=== PATIENT | female | born 1985 | race Caucasian/White ===

== ENCOUNTER → 2018-04-14 | Outpatient (CLI) | payer OTHER ==
[2018-04-14 11:24] LABS: EOS # 0.3 (0.04-0.40); EOS % 3.4 % (1.0-5.0); HEMATOCRIT 40.8 % (37.0-47.0); HEMOGLOBIN 13.6 g/dL (12.5-16.0); LYMPH# 1.3 (1.50-4.00); MEAN CELL VOLUME 89 fl (78-100); MEAN CORPUSCULAR HEMOGLOBIN 30 pg (27-31); MEAN CORPUSCULAR HGB CONC 33 g/dL (33-37); MEAN PLATELET VOLUME 9.4 fl (7.4-10.4); MONO # 0.5 (0.20-0.80); NEU # 5.4 (1.40-6.50); PLATELET COUNT 297 K/mm3 (130-400); RED BLOOD COUNT 4.57 M/mm3 (4.10-5.30); RED CELL DISTRIBUTION WIDTH 12.6 % (11.5-14.5); WHITE BLOOD COUNT 7.4 K/mm3 (4.8-10.8)
== END ==
LOC: LAB 11:11
PROVIDERS: Nurse Practitioner
DX: R53.81 Other malaise (principal); R53.83 Other fatigue

== ENCOUNTER → 2018-08-19 | Outpatient (CLI) | payer OTHER ==
[2018-08-19 11:51] LABS: ALBUMIN 4.3 g/dL (3.5-5.0); CALCIUM 9.1 mg/dL (8.4-10.2); TOTAL BILIRUBIN 0.4 mg/dL (0.2-1.3); TOTAL PROTEIN 7.2 g/dL (6.3-8.2)
[2018-08-19 11:59] LABS: EOS # 0.2 (0.04-0.40); EOS % 4.7 % (1.0-5.0); HEMATOCRIT 42.2 % (37.0-47.0); HEMOGLOBIN 14.2 g/dL (12.5-16.0); LYMPH# 0.8 (1.50-4.00); MEAN CELL VOLUME 89 fl (78-100); MEAN CORPUSCULAR HEMOGLOBIN 30 pg (27-31); MEAN CORPUSCULAR HGB CONC 34 g/dL (33-37); MEAN PLATELET VOLUME 9.6 fl (7.4-10.4); MONO # 0.4 (0.20-0.80); NEU # 3.4 (1.40-6.50); PLATELET COUNT 254 K/mm3 (130-400); RED BLOOD COUNT 4.74 M/mm3 (4.10-5.30); RED CELL DISTRIBUTION WIDTH 12.8 % (11.5-14.5); WHITE BLOOD COUNT 4.9 K/mm3 (4.8-10.8)
[2018-08-19 12:59] LABS: ERYTHROCYTE SEDIMENTATION RATE 3 mm/hr (0-20)
[2018-08-20 02:39] LABS: C-REACTIVE PROTEIN XXX
== END ==
LOC: LAB 11:12
PROVIDERS: Family Medicine
DX: R10.9 Unspecified abdominal pain (principal); E66.3 Overweight; R53.83 Other fatigue; G89.29 Other chronic pain

== ENCOUNTER → 2020-03-05 | Outpatient (CLI) | payer OTHER | LOC: LAB 08:26 | DX: R30.0 Dysuria (principal) ==

== ENCOUNTER → 2020-06-01 | Outpatient (CLI) | payer OTHER ==
[2020-06-01 15:47] LABS: EOS # 0.4 (0.04-0.40); EOS % 5.9 % (1.0-5.0); HEMATOCRIT 39.3 % (37.0-47.0); HEMOGLOBIN 13.1 g/dL (12.5-16.0); LYMPH# 2.1 (1.50-4.00); MEAN CELL VOLUME 92 fl (78-100); MEAN CORPUSCULAR HEMOGLOBIN 31 pg (27-31); MEAN CORPUSCULAR HGB CONC 33 g/dL (33-37); MEAN PLATELET VOLUME 9.3 fl (7.4-10.4); MONO # 0.5 (0.20-0.80); NEU # 3.3 (1.40-6.50); PLATELET COUNT 330 K/mm3 (130-400); RED BLOOD COUNT 4.29 M/mm3 (4.10-5.30); WHITE BLOOD COUNT 6.4 K/mm3 (4.8-10.8)
[2020-06-01 15:56] LABS: ALBUMIN 4.4 g/dL (3.5-5.0); POTASSIUM 4.1 mmol/L (3.5-5.1); SODIUM 141 mmol/L (136-145)
[2020-06-01 15:57] LABS: CALCIUM 9.5 mg/dL (8.3-10.5)
[2020-06-01 15:58] LABS: GLUCOSE 86 mg/dL (65-105); TOTAL PROTEIN 7.2 g/dL (6.4-8.3)
[2020-06-01 15:59] LABS: CARBON DIOXIDE 27 mmol/L (22-29)
[2020-06-01 16:00] LABS: TOTAL BILIRUBIN 0.2 mg/dL (0.2-1.2)
[2020-06-01 16:04] LABS: AST-SGOT 18 U/L (5-34)
[2020-06-01 16:05] LABS: ALT/SGPT 16 U/L (0-55)
[2020-06-01 16:42] LABS: ERYTHROCYTE SEDIMENTATION RATE 6 mm/hr (0-20)
== END ==
LOC: LAB 15:35
PROVIDERS: Family Medicine
DX: R53.83 Other fatigue (principal)

== ENCOUNTER → 2020-07-13 | Outpatient (CLI) | payer OTHER | LOC: RAD 07:41 | DX: N13.30 Unspecified hydronephrosis (principal) ==

== ENCOUNTER → 2020-08-03 | Outpatient (CLI) | payer OTHER ==
[2020-08-03 18:42] LABS: ALBUMIN 4.4 g/dL (3.5-5.0); POTASSIUM 3.9 mmol/L (3.5-5.1)
[2020-08-03 18:43] LABS: CALCIUM 9.2 mg/dL (8.3-10.5)
[2020-08-03 18:44] LABS: TOTAL PROTEIN 7.3 g/dL (6.4-8.3); URINE APPEARANCE CLEAR; URINE BILIRUBIN NEGATIVE (NEGATIVE); URINE BLOOD NEGATIVE (NEGATIVE); URINE COLOR YELLOW; URINE GLUCOSE NEGATIVE (NEGATIVE); URINE KETONE NEGATIVE (NEGATIVE); URINE LEUKOCYTE ESTERASE NEGATIVE (NEGATIVE); URINE NITRATE NEGATIVE (NEGATIVE); URINE PROTEIN(semi-quant) NEGATIVE (NEGATIVE); URINE UROBILINOGEN NORMAL (NORMAL); URINE WBC 0-1 /hpf (0-3)
[2020-08-03 18:46] LABS: TOTAL BILIRUBIN 0.2 mg/dL (0.2-1.2)
[2020-08-04 20:54] LABS: CREATININE OTHER SOURCE 13 mg/dL (())
== END ==
LOC: LAB 18:25
PROVIDERS: Internal Medicine Nephrology
DX: N17.9 Acute kidney failure, unspecified (principal)

== ENCOUNTER → 2020-08-19 | Outpatient (CLI) | payer OTHER ==
[~2020-08-19] MED LIST: PROAIR HFA0.09 MG/AC IH; XANAX0.25 M1 PO; ZOFRAN ODT4 MG PO
== END ==
LOC: RAD 16:15
DX: N13.30 Unspecified hydronephrosis (principal)
CPT/HCPCS: Q9967

== ENCOUNTER 2020-10-17 21:21 | Emergency (ER) | payer OTHER ==
[2020-10-17] MEDS ORDERED: XANAX0.25 M1 PO (21:37)
[2020-10-17] MEDS ORDERED: PROAIR HFA0.09 MG/AC IH (21:37)
[2020-10-17 21:44] LABS: EOS # 0.4 (0.04-0.40); EOS % 5.8 % (1.0-5.0); HEMATOCRIT 42.5 % (37.0-47.0); HEMOGLOBIN 14.2 g/dL (12.5-16.0); LYMPH# 2.5 (1.50-4.00); MEAN CELL VOLUME 91 fl (78-100); MEAN CORPUSCULAR HEMOGLOBIN 30 pg (27-31); MEAN CORPUSCULAR HGB CONC 33 g/dL (33-37); MEAN PLATELET VOLUME 9.4 fl (7.4-10.4); MONO # 0.5 (0.20-0.80); NEU # 3.7 (1.40-6.50); PLATELET COUNT 315 K/mm3 (130-400); RED BLOOD COUNT 4.67 M/mm3 (4.10-5.30); RED CELL DISTRIBUTION WIDTH 12.6 % (11.5-14.5); WHITE BLOOD COUNT 7.1 K/mm3 (4.8-10.8)
[2020-10-17 21:51] LABS: ALBUMIN 4.8 g/dL (3.5-5.0); POTASSIUM 4.2 mmol/L (3.5-5.1)
[2020-10-17 21:52] LABS: CALCIUM 9.9 mg/dL (8.3-10.5)
[2020-10-17 21:54] LABS: TOTAL PROTEIN 7.8 g/dL (6.4-8.3)
[2020-10-17 21:55] LABS: TOTAL BILIRUBIN 0.4 mg/dL (0.2-1.2)
[2020-10-18 01:04] LABS: URINE APPEARANCE HAZY; URINE BILIRUBIN NEGATIVE (NEGATIVE); URINE BLOOD NEGATIVE (NEGATIVE); URINE COLOR YELLOW; URINE GLUCOSE NEGATIVE (NEGATIVE); URINE KETONE 1+ (NEGATIVE); URINE LEUKOCYTE ESTERASE NEGATIVE (NEGATIVE); URINE NITRATE NEGATIVE (NEGATIVE); URINE PROTEIN(semi-quant) NEGATIVE (NEGATIVE); URINE UROBILINOGEN NORMAL (NORMAL); URINE WBC 0-1 /hpf (0-3)
[2020-10-18] MEDS ORDERED: ZOFRAN ODT4 MG PO (01:18)
[2020-10-18 01:28] VITALS: BP 112/58
== END 2020-10-18 01:28 | disposition home or self-care (01) ==
LOC: ED 21:21
PROVIDERS: Nurse Practitioner
DX: A08.4 Viral intestinal infection, unspecified (principal); J45.909 Unspecified asthma, uncomplicated; Z90.49 Acquired absence of other specified parts of digestive tract; Z79.899 Other long term (current) drug therapy
CPT/HCPCS: J2550; J3010; J7030

== ENCOUNTER → 2021-02-04 | Outpatient (CLI) | payer OTHER ==
[2021-02-04 11:34] LABS: CALCIUM 9.4 mg/dL (8.3-10.5)
[2021-02-05 14:07] LABS: CREATININE OTHER SOURCE 49 mg/dL (())
== END ==
LOC: LAB 11:12
PROVIDERS: Internal Medicine Nephrology
DX: N13.30 Unspecified hydronephrosis (principal); N17.9 Acute kidney failure, unspecified

== ENCOUNTER → 2022-05-16 | Outpatient (CLI) | payer OTHER | LOC: LAB 09:09 | DX: J02.9 Acute pharyngitis, unspecified (principal); R52 Pain, unspecified ==

== ENCOUNTER → 2022-10-02 | Outpatient (CLI) | payer OTHER ==
[2022-10-02 17:51] LABS: POTASSIUM 3.6 mmol/L (3.5-5.1)
[2022-10-02 17:53] LABS: CALCIUM 9.1 mg/dL (8.3-10.5)
[2022-10-02 17:54] LABS: TOTAL PROTEIN 6.6 g/dL (6.4-8.3)
[2022-10-02 17:56] LABS: TOTAL BILIRUBIN 0.2 mg/dL (0.2-1.2)
[2022-10-02 19:27] LABS: URINE APPEARANCE CLEAR; URINE BILIRUBIN NEGATIVE (NEGATIVE); URINE BLOOD NEGATIVE (NEGATIVE); URINE COLOR YELLOW; URINE GLUCOSE NEGATIVE (NEGATIVE); URINE KETONE NEGATIVE (NEGATIVE); URINE LEUKOCYTE ESTERASE TRACE (NEGATIVE); URINE NITRATE NEGATIVE (NEGATIVE); URINE PROTEIN(semi-quant) NEGATIVE (NEGATIVE); URINE UROBILINOGEN NORMAL (NORMAL)
[2022-10-05 06:41] LABS: CLADOSPORIUM ALLERGEN COUNT <0.10 kU/L (()); COCKROACH ALLERGEN COUNT <0.10 kU/L (()); ELM TREE ALLERGEN COUNT 0.96 kU/L (()); MILK ALLERGEN COUNT 0.25 kU/L (()); OAK ALLERGEN COUNT 0.34 kU/L (()); PEANUT ALLERGEN COUNT <0.10 kU/L (())
[2022-10-09 02:38] LABS: BOX ELDER-MAPLE ALLERGEN COUNT 0.41 kU/L (())
[2022-10-09 02:39] LABS: BERMUDA GRASS ALLERGEN COUNT 0.12 kU/L (()); CAT DANDER ALLERGEN COUNT 9.66 kU/L (()); CODFISH ALLERGEN COUNT <0.10 kU/L (()); COTTONWOOD TREE ALLERGEN COUNT 0.13 kU/L (()); DOG DANDER ALLERGEN COUNT 2.32 kU/L (()); DUST MITES (D.P.) ALLERG COUNT <0.10 kU/L (()); ROUGH MARSH ELDER ALLERG COUNT 0.25 kU/L (())
== END ==
LOC: LAB 17:15
PROVIDERS: Family Medicine
DX: Z00.00 Encounter for general adult medical examination without abnormal findings (principal); E78.5 Hyperlipidemia, unspecified; F41.9 Anxiety disorder, unspecified; J45.30 Mild persistent asthma, uncomplicated; E66.3 Overweight; J30.2 Other seasonal allergic rhinitis; R53.83 Other fatigue; E56.9 Vitamin deficiency, unspecified; R73.9 Hyperglycemia, unspecified

== ENCOUNTER → 2023-12-02 | Outpatient (CLI) | payer OTHER ==
[2023-12-02 15:37] LABS: BASO # 0.03 K/mm3 (0.02-0.10); EOS # 0.29 K/mm3 (0.04-0.40); EOS % 4.5 % (1.0-5.0); HEMATOCRIT 38.2 % (37.0-47.0); HEMOGLOBIN 12.6 g/dL (12.5-16.0); LYMPH# 1.69 K/mm3 (1.50-4.00); MEAN CELL VOLUME 91 fl (78-100); MEAN CORPUSCULAR HEMOGLOBIN 30 pg (27-31); MEAN CORPUSCULAR HGB CONC 33 g/dL (33-37); MONO # 0.46 K/mm3 (0.20-0.80); PLATELET COUNT 265 K/mm3 (130-400); RED BLOOD COUNT 4.21 M/mm3 (4.10-5.30); RED CELL DISTRIBUTION WIDTH 12.6 % (11.5-14.5); WHITE BLOOD COUNT 6.5 K/mm3 (4.8-10.8)
[2023-12-02 15:48] LABS: ALBUMIN 4.3 g/dL (3.5-5.0)
[2023-12-02 15:49] LABS: CALCIUM 9.1 mg/dL (8.3-10.5)
[2023-12-02 15:50] LABS: TOTAL PROTEIN 6.8 g/dL (6.4-8.3)
[2023-12-02 15:52] LABS: TOTAL BILIRUBIN 0.3 mg/dL (0.2-1.2)
== END ==
LOC: LAB 15:24
PROVIDERS: Family Medicine
DX: E78.5 Hyperlipidemia, unspecified (principal); I10 Essential (primary) hypertension

== ENCOUNTER → 2024-02-11 | Outpatient (CLI) | payer OTHER ==
[2024-02-11 07:52] LABS: BASO # 0.03 K/mm3 (0.02-0.10); EOS # 0.35 K/mm3 (0.04-0.40); EOS % 6.9 % (1.0-5.0); HEMATOCRIT 39.9 % (37.0-47.0); HEMOGLOBIN 13.1 g/dL (12.5-16.0); LYMPH# 1.42 K/mm3 (1.50-4.00); MEAN CELL VOLUME 91 fl (78-100); MEAN CORPUSCULAR HEMOGLOBIN 30 pg (27-31); MEAN CORPUSCULAR HGB CONC 33 g/dL (33-37); MEAN PLATELET VOLUME 9.1 fl (7.4-10.4); MONO # 0.38 K/mm3 (0.20-0.80); PLATELET COUNT 244 K/mm3 (130-400); RED BLOOD COUNT 4.38 M/mm3 (4.10-5.30); RED CELL DISTRIBUTION WIDTH 12.3 % (11.5-14.5); WHITE BLOOD COUNT 5.1 K/mm3 (4.8-10.8)
[2024-02-11 16:38] LABS: T3 FREE 2.8 pg/mL (1.7-3.7)
== END ==
LOC: LAB 07:37
PROVIDERS: Family Medicine
DX: D50.9 Iron deficiency anemia, unspecified (principal); E03.9 Hypothyroidism, unspecified; E55.9 Vitamin D deficiency, unspecified